=== PATIENT | male | born 1970 | race Caucasian/White ===

== ENCOUNTER 2017-12-06 08:27 | Emergency (ER) | payer OTHER, SELFPAY | END 2017-12-06 10:24 | disposition home or self-care (01) | LOC: M ED 08:27 | DX: M54.41 Lumbago with sciatica, right side (principal); G89.29 Other chronic pain; R03.0 Elevated blood-pressure reading, without diagnosis of hypertension; F17.210 Nicotine dependence, cigarettes, uncomplicated | CPT/HCPCS: 99283 ==

== ENCOUNTER → 2018-01-06 | Outpatient (CLI) | payer OTHER ==
[2018-01-06 16:52] LABS: ALBUMIN 4.1 GM/DL (3.2-5.2); ALBUMIN/GLOBULIN RATIO 1.32 (1.00-1.93); ALKALINE PHOSPHATASE 78 U/L (45-117); ALT/SGPT 28 U/L (12-78); ANION GAP 7 MEQ/L (8-16); AST/SGOT 13 U/L (7-37); BILIRUBIN,TOTAL 1.2 MG/DL (0.2-1.0); BLOOD UREA NITROGEN 12 MG/DL (7-18); CALCIUM LEVEL 8.8 MG/DL (8.5-10.1); CARBON DIOXIDE LEVEL 28 MEQ/L (21-32); CHLORIDE LEVEL 105 MEQ/L (98-107); CREATININE FOR GFR 0.85 MG/DL (0.70-1.30); FREE T4 0.95 NG/DL (0.76-1.46); GLOMERULAR FILTRATION RATE > 60.0 (>60); GLUCOSE, FASTING 96 MG/DL (70-100); POTASSIUM SERUM 4.6 MEQ/L (3.5-5.1); SODIUM LEVEL 140 MEQ/L (136-145); TOTAL PROTEIN 7.2 GM/DL (6.4-8.2)
[2018-01-06 18:37] LABS: BASO % 0.3 % (0.0-1.0); EOS # 0.1 10^3/uL (0.0-0.50); EOS % 1.2 % (0.0-3.0); HEMATOCRIT 44.5 % (42.0-52.0); HEMOGLOBIN 14.9 g/dl (14.0-18.0); IMMATURE GRANULOCYTE % 0.4 % (0-3.0); LYMPH # 1.9 10^3/uL (1.5-4.5); LYMPH % 26.7 % (24.0-44.0); MEAN CORPUSCULAR HGB CONC 33.5 g/dl (32.0-36.5); MEAN CORPUSCULAR VOLUME 89.5 fl (80.0-96.0); MONO # 0.5 10^3/uL (0.0-0.8); MONO % 7.4 % (0.0-5.0); NEUTROPHILS # 4.6 10^3/uL (1.8-7.7); PLATELET COUNT, AUTOMATED 222 10^3/uL (150-450); RED BLOOD COUNT 4.97 10^6/uL (4.30-6.10); RED CELL DISTRIBUTION WIDTH 12.4 % (11.5-14.5); WHITE BLOOD COUNT 7.3 10^3/uL (4.0-10.0)
== END ==
LOC: M WUC 12:58
DX: R42 Dizziness and giddiness (principal)
CPT/HCPCS: 84443

== ENCOUNTER → 2018-03-17 | Outpatient (CLI) | payer OTHER ==
[2018-03-17 08:51] LABS: BASO % 0.5 % (0.0-1.0); EOS # 0.1 10^3/uL (0.0-0.50); EOS % 2.2 % (0.0-3.0); HEMATOCRIT 44.1 % (42.0-52.0); HEMOGLOBIN 14.9 g/dl (13.5-17.5); IMMATURE GRANULOCYTE % 0.6 % (0-3.0); LYMPH # 1.4 10^3/uL (1.5-4.5); LYMPH % 21.7 % (24.0-44.0); MEAN CORPUSCULAR HEMOGLOBIN 30.3 pg (27.0-33.0); MEAN CORPUSCULAR HGB CONC 33.8 g/dl (32.0-36.5); MEAN CORPUSCULAR VOLUME 89.8 fl (80.0-96.0); MONO # 0.6 10^3/uL (0.0-0.8); MONO % 8.9 % (0.0-5.0); NEUTROPHILS # 4.2 10^3/uL (1.8-7.7); NEUTROPHILS % 66.1 % (36.0-66.0); PLATELET COUNT, AUTOMATED 239 10^3/uL (150-450); RED BLOOD COUNT 4.91 10^6/uL (4.30-6.10); RED CELL DISTRIBUTION WIDTH 12.9 % (11.5-14.5); WHITE BLOOD COUNT 6.3 10^3/uL (4.0-10.0)
[2018-03-17 08:59] LABS: APPEARANCE, URINE HAZY (CLEAR); BACTERIA, URINE AUTO NEGATIVE (NEGATIVE); BILIRUBIN, URINE AUTO NEGATIVE (NEGATIVE); BLOOD, URINE BLOOD NEGATIVE (NEGATIVE); COLOR, URINE YELLOW (YELLOW); GLUCOSE, URINE (UA) AUTO NEGATIVE (NEGATIVE); KETONE, URINE AUTO NEGATIVE (NEGATIVE); LEUKOCYTE ESTERASE, URINE AUTO NEGATIVE (NEGATIVE); MUCUS, URINE SMALL (NEGATIVE); NITRITE, URINE AUTO NEGATIVE (NEGATIVE); PROTEIN, URINE AUTO NEGATIVE (NEGATIVE); RBC, URINE AUTO 2 /HPF (0-3); SPECIFIC GRAVITY URINE AUTO 1.027 (1.002-1.035); SQUAMOUS EPITHELIAL CELL UR AU 0 /HPF (0-6); UROBILINOGEN, URINE AUTO 0.2 mg/dL (0.0-2.0); WBC, URINE AUTO 1 /HPF (0-3)
[2018-03-17 09:29] LABS: ALBUMIN 3.8 GM/DL (3.2-5.2); ALBUMIN/GLOBULIN RATIO 1.31 (1.00-1.93); ALKALINE PHOSPHATASE 82 U/L (45-117); ALT/SGPT 38 U/L (12-78); ANION GAP 7 MEQ/L (8-16); AST/SGOT 30 U/L (7-37); BILIRUBIN,TOTAL 1.1 MG/DL (0.2-1.0); BLOOD UREA NITROGEN 16 MG/DL (7-18); CALCIUM LEVEL 8.9 MG/DL (8.5-10.1); CARBON DIOXIDE LEVEL 26 MEQ/L (21-32); CHLORIDE LEVEL 108 MEQ/L (98-107); GLOMERULAR FILTRATION RATE > 60.0 (>60); GLUCOSE, FASTING 104 MG/DL (70-100); POTASSIUM SERUM 4.2 MEQ/L (3.5-5.1); SODIUM LEVEL 141 MEQ/L (136-145); TOTAL PROTEIN 6.7 GM/DL (6.4-8.2)
[2018-03-17 10:25] LABS: HEPATITIS B SURFACE ANTIGEN NEGATIVE (NEGATIVE)
[2018-03-17 10:39] LABS: HEPATITIS B SURFACE ANTIBODY NEGATIVE (POSITIVE)
[2018-03-17 10:44] LABS: HEPATITIS C VIRUS ABY INDEX < 0.0 INDEX (<0.8)
[2018-03-18 08:11] LABS: HEPATITIS A IgG TOTAL Negative (Negative)
== END ==
LOC: M LAB 08:07
DX: Z04.9 Encounter for examination and observation for unspecified reason (principal); F11.21 Opioid dependence, in remission; F10.11 Alcohol abuse, in remission
CPT/HCPCS: 80053

== ENCOUNTER 2019-01-03 17:27 | Emergency (ER) | payer OTHER ==
[~2019-01-03] VITALS: Ht 175.3 cm; Wt 83.2 kg
[~2019-01-03 17:27] MED LIST: IBUP80TA PO; PERC5TAB12 PO
[2019-01-03] MEDS ORDERED: NALT50TA4 (17:34)
[2019-01-03] MEDS ORDERED: ACAM0.05 (17:34)
[2019-01-03] MEDS ORDERED: AUGM875T28 PO (19:44)
[2019-01-03] MEDS ORDERED: AUGMENTIN 875 MG TAB PO ONE (19:45)
[2019-01-03 19:55] VITALS: BP 141/101
== END 2019-01-03 20:03 | disposition home or self-care (01) ==
LOC: M ED 17:27
DX: R68.84 Jaw pain (principal); K08.89 Other specified disorders of teeth and supporting structures; J02.9 Acute pharyngitis, unspecified

== ENCOUNTER 2020-01-13 12:32 | Emergency (ER) | payer MEDICAID, OTHER ==
[~2020-01-13] VITALS: Ht 175.3 cm; Wt 90.8 kg
[~2020-01-13 12:32] MED LIST changes: +ACAM0.05; +AUGM875T28 PO; +NALT50TA4
[2020-01-13 12:34] VITALS: BP 138/87
[2020-01-13] MEDS ORDERED: QUET1TAB7 (12:39)
[2020-01-13] MEDS ORDERED: BAYE500T2 PO (12:39)
[2020-01-13] MEDS ORDERED: CYCL10TA PO (13:16)
[2020-01-13] MEDS ORDERED: IBUP-1022 PO (13:16)
== END 2020-01-13 13:45 | disposition home or self-care (01) ==
LOC: M ED 12:32
DX: M54.41 Lumbago with sciatica, right side (principal); G89.29 Other chronic pain; F17.210 Nicotine dependence, cigarettes, uncomplicated; Z79.82 Long term (current) use of aspirin; Z79.899 Other long term (current) drug therapy

== ENCOUNTER 2020-01-27 10:15 | Outpatient (RCR) | payer MEDICAID, SELFPAY ==
[~2020-01-27 10:15] MED LIST changes: +BAYE500T2 PO; +CYCL10TA PO; +IBUP-1022 PO; +QUET1TAB7
== END 2020-02-14 ==
LOC: M PT 10:15
PROVIDERS: ATTEND Physician Assistant
DX: M47.896 Other spondylosis, lumbar region (principal); M51.36 Other intervertebral disc degeneration, lumbar region

== ENCOUNTER → 2020-05-12 | Outpatient (CLI) | payer MEDICAID ==
[~2020-05-12] MED LIST changes: +CYCL-707 PO; -CYCL10TA PO
== END ==
LOC: M LABSMTC 08:17
PROVIDERS: ATTEND Physical Medicine & Rehabilitation
DX: Z11.59 Encounter for screening for other viral diseases (principal); Z03.89 Encounter for observation for other suspected diseases and conditions ruled out

== ENCOUNTER → 2020-06-01 | Outpatient (CLI) | payer OTHER | LOC: M LABSMTC 09:26 | PROVIDERS: ATTEND Physician Assistant | DX: Z01.818 Encounter for other preprocedural examination (principal); Z11.59 Encounter for screening for other viral diseases ==

== ENCOUNTER → 2022-04-09 | Outpatient (REF) ==
[~2022-04-09] MED LIST changes: +QUET1TAB17; -QUET1TAB7
== END ==
LOC: M PLAIMG 15:34
PROVIDERS: ATTEND Internal Medicine
DX: M43.07 Spondylolysis, lumbosacral region (principal); S32.010D Wedge compression fracture of first lumbar vertebra, subsequent encounter for fracture with routine healing; M48.07 Spinal stenosis, lumbosacral region; M25.78 Osteophyte, vertebrae

== ENCOUNTER 2024-06-27 11:15 | Day surgery (SDC) | payer OTHER ==
[~2024-06-27] VITALS: Ht 175.3 cm; Wt 95.0 kg
[~2024-06-27 11:15] MED LIST changes: +DIVA500T94 PO; +GABA600T4 PO; +METO50TA7 PO; +NIFE1TAB52 PO; +NORT25CA2 PO
[2024-06-27] MEDS ORDERED: fentaNYL 100 MCG/2 ML INJECTION As Ordered ONE (11:21)
[2024-06-27] MEDS ORDERED: MIDAZOLAM INJ 2MG/2ML VIAL As Ordered ONE (11:21)
[2024-06-27] MEDS ORDERED: CYCL-707 PO (11:35)
[2024-06-27] MEDS ORDERED: LIDOCAINE 2% 100MG/5ML SDV (FOR ANES.) As Ordered ONE (12:02)
[2024-06-27] MEDS ORDERED: ACETAMINOPHEN 1000MG 100ML IV BAG As Ordered ONE (12:02)
[2024-06-27] MEDS: LR 1,000 ML IV SCH (12:04)
[2024-06-27] MEDS ORDERED: propofoL 200 MG/20 ML VIAL As Ordered ONE (12:07)
[2024-06-27] MEDS: ceFAZolin SOD 2 GM in IV 1 EA IV ONE (12:22)
[2024-06-27] MEDS ORDERED: ONDANSETRON 4MG 2ML VIAL As Ordered ONE (12:45)
[2024-06-27] MEDS ORDERED: SUGAMMADEX SODIUM 500 MG/5 ML VIAL (BRIDION) As Ordered ONE (12:46)
[2024-06-27] MEDS ORDERED: KETOROLAC 60MG 2ML VIAL As Ordered ONE (12:46)
[2024-06-27] MEDS ORDERED: HYDROMORPHONE HCL 0.5 MG/ 0.5 ML SYRINGE IV PRN (13:25)
[2024-06-27] MEDS ORDERED: ONDANSETRON 4MG 2ML VIAL IV PRN (13:25)
[2024-06-27] MEDS ORDERED: fentaNYL 100 MCG/2 ML INJECTION IV PRN (13:25)
[2024-06-27] MEDS ORDERED: oxyCODONE 5MG TAB PO PRN (13:25)
[2024-06-27] MEDS ORDERED: LR 1,000 ML IV SCH (13:25)
[2024-06-27 15:22] VITALS: BP 130/75; TEMP 97.4; O2SAT 97
== END 2024-06-27 15:25 | disposition home or self-care (01) ==
LOC: M SDC 11:15
PROVIDERS: ATTEND Surgery
DX: D17.23 Benign lipomatous neoplasm of skin and subcutaneous tissue of right leg (principal); I10 Essential (primary) hypertension; Z79.899 Other long term (current) drug therapy
CPT/HCPCS: 11406; 88304; 93005; J0131; J0665; J0690; J1100; J1885; J2250; J2405; J3010

== ENCOUNTER → 2025-08-15 | Outpatient (CLI) | payer MEDICARE, OTHER ==
[~2025-08-15] MED LIST changes: +DIVA-41 PO; -DIVA500T94 PO; +GABA-1490 PO; -GABA600T4 PO; -IBUP-1022 PO; +IBUP600T42 PO
== END ==
LOC: M RAD 14:03
PROVIDERS: ATTEND Family Medicine
DX: Z87.891 Personal history of nicotine dependence (principal)